=== PATIENT | male | born 1945 | race Caucasian/White ===

== ENCOUNTER 2025-06-04 16:10 | Outpatient (AMB) | payer BC, SELFPAY ==
--- OUTSIDE RECORDS SUMMARY | 2025-06-02 23:59 | XMS_ITS | Continuity of Care Document ---
Author Organization [facility] Primary [address] [place] Address [address] [place] [address]- Care Team Providers Care E Commerce Director Name Role Phone Enrique SEGUNDO (Psychiatric), Jade Landers Primary Care Ph ysician Encounter [facility] Date(s): 05/03/25 - 06/02/25 [facility] [address], [place] [address] Encounter Type: Triage Allergies, Adverse Reactions, Alerts Substance Criticality Severity Reaction Reaction Severity Status Adhesive Bandage Unable to assess criticality Unknown Active Immunizations Given and Recorded Vaccine Date Status Refusal Reason RSV vaccine preF3, recombinant 02/19/25 Recorded influenza virus vaccine, inactivated 10/27/24 Adiel rded influenza virus vaccine, inactivated 09/01/23 Adiel rded influenza virus vaccine, inactivated 09/08/22 Adiel rded influenza virus vaccine, inactivated 10/06/21 Adiel rded influenza virus vaccine, inactivated 09/04/20 Adiel rded influenza virus vaccine, inactivated 08/03/18 Adiel rded influenza virus vaccine, inactivated 09/26/17 Adiel rded influenza virus vaccine, inactivated 11/02/16 Adiel rded SARS-CoV-2(COVID-19)mRNA-LNP vac([id number]) 08/21/24 Recorded SARS-CoV-2(COVID-19)mRNA-LNP vac([id number]) 02/10/24 Recorded SARS-CoV-2(COVID-19)mRNA-LNP vac([id number]) 08/23/23 Recorded [id number] bivalent booster vax 03/12/23 Recorded [id number] bivalent booster vax 08/11/22 Recorded SARS-CoV-2 (COVID-19) mRNA-1273 vaccine 02/24/22 R ecorded SARS-CoV-2 (COVID-19) mRNA-1273 vaccine 09/17/21 R ecorded SARS-CoV-2 (COVID-19) mRNA-1273 vaccine 02/20/21 R ecorded SARS-CoV-2 (COVID-19) mRNA-1273 vaccine 01/23/21 R ecorded tetanus/diphtheria/pertussis, acel(Tdap) 02/01/18 Recorded Medications doxazosin 2 mg oral tablet 1, tablet, By Mouth, Daily, # 90 tablet, Refills 1, Maintenance, 02/15/25 10:51:00 AM EDT, Route to Pharmacy Electronically, [facility], 173, cm, 01/21/25 8:09:00 EST, Height, 64, kg, 09/10/24 11:52:00 EDT, Dry Weight Start Date: 02/15/25 Status: Ordered Quantity: 90.0 Unit: tablet Repeat number: 1 fluticasone 50 mcg/inh nasal spray 2 sprays = 100 mcg, Nares, Both, Daily in AM, # 16 Gm, 0 Refills, Maintenance, 11/30/24 2:20:00 PM EST, [place], [facility]/pharmacy #[id number], Partial fill upon patient request if the prescription is for a schedule II opioid drug., 2 sprays Nares, Both Daily in AM, 173, cm, 11/30/24 14:07:00 EST, Height, 64, kg, 09/10/24 11:52:00 EDT, Dry Weight Start Date: 11/30/24 Status: Ordered Quantity: 16.0 Unit: g Repeat number: 1 lisinopril 2.5 mg oral tablet 2.5 mg, 1, tablet, By Mouth, Daily, # 90 tablet, Refills 1, Tot. Refills 1, Maintenance, 05/08/25 7:38:00 PM EDT, Route to Pharmacy Electronically, [facility], 173, cm, 03/11/2515:28:00 EDT, Height, 64, kg, 09/10/24 11:52:00 EDT, Dry Weight Start Date: 05/08/25 Status: Ordered Quantity: 90.0 Unit: tablet Repeat number: 2 Neurontin 600 mg oral tablet 1 tablet = 600 mg, By Mouth, 2 times a day, # 270 tablet, 0 Refills, Maintenance, 09/17/21 4:26:00 PM EDT, Tablet, Partial fill upon patient request if the prescription is for a schedule II opioid drug. Start Date: 09/17/21 Status: Ordered Quantity: 270.0 Unit: tablet Repeat number: 1 PriLOSEC OTC 20 mg oral delayed release tablet 1 tablet = 20 mg, By Mouth, Daily, PRN Dyspepsia, 0 Refills, Maintenance, 09/17/21 4:28:00 PM EDT, Partial fill upon patient request if the prescription is for a schedule II opioid drug. Start Date: 09/17/21 Status: Ordered Repeat number: 1 Vitamin D3 5000 intl units oral capsule 1 capsule = 125 mcg, By Mouth, Daily, # 90 capsule, 1 Refills, Maintenance, 03/11/25 3:45:00 PM EDT,[facility], Partial fill upon patient request if the prescription is for a schedule II opioid drug., 173, cm, 03/11/25 15:28:00 EDT, Height, 64, kg, 09/10/24 11:52:00 EDT, Dry Weight Start Date: 03/11/25 Stop Date: 09/07/25 Status: Ordered Quantity: 90.0 Unit: capsule Repeat number: 2 Problem List Condition Confirmation Course Effective Dates Status Health St atus Informant 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 H/O renal calculi Confirmed Active Hypertension Confirmed Active Neuropathy of foot Confirmed Active Vitamin D deficiency Confirmed Active Social History Social History Type Response Smoking Status Never (less than 100 in lifetime) entered on: 09/17/21 Sex Sex Representation Male (finding) Patient Care team information Care Team Personnel Name: Enrique SEGUNDO ([facility] [place]), Jade Landers Position: [facility] Physician - Primary Care Member Role: PCP Address: [address] [place] [id number] Telecom: Care Team Related Persons Name: GM HARRIS Name: ISAMAR MASON Insurance Providers Guarantor name: YANIRA Health Plan Information #: 1 Payer: [employer] [place] [employer] Payer Identifier: YANIRA Member Number: [id number] Group Number: [id number] Subscriber Identifier: [id number] Relationship to Subscriber: self Coverage Type: NA Coverage Verification Date: Telecom: Address:
--- NOTE | 2025-06-04 16:12 | MHC.OFFVIS ---
Vital Signs 06/04/25 16:12 Height 5 ft 8 in Intake Visit Reasons: 1 YR Allergies No Known Allergies Allergy (Verified 06/03/25 08:23) Medication List - Last Reconciled 06/04/25 by Nancy Jay CNP cholecalciferol (vitamin D3) 25 mcg PO DAILY doxazosin 2 mg PO DAILY gabapentin 600 mg PO BID lisinopril 5 mg PO DAILY omeprazole magnesium (Prilosec OTC) 20 mg PO DAILY HPI Comments Details: He was doing okay. Neuropathic pain controlled with Gabapentin 600mg twice a day. Gets some aching type pain in feet with increased activity. No falls. Cross country skiing in the winter. Sleep was okay. Noticed it takes him longer to recall information, like names of restaurants, but will eventually think of it. He developed numbness in the soles of his feet around 2010. In January of 2018 started to feel an uncomfortable sensation like his socks were wet. In May 2018 he started to get burning tingling and pain from the ankles down. Juvenal ecreeping up of numbness. There is no family history of neuropathy. His mother had trigeminal neuralgia. There is no history of toxic exposure. [facility] Medical History (Updated 06/04/25 @ 16:21 by Nancy Jay CNP) Peripheral neuropathy Review of Systems Const Denies chills, Denies daytime sleepiness, Denies difficulty sleeping, Denies fatigue, Denies fever(s), Denies frequent falls, Denies headache(s), Denies increased appetite, Denies poor appetite, Denies snoring, Denies weakness, Denies weight gain and Denies weight loss Eyes Denies loss of vision ENT Denies vertigo, Denies dizziness, Denies headache(s) and Denies neck pain Card Denies chest pain at rest, Denies chest pain with activity, Denies syncope, Denies leg edema, Denies palpitations, Denies dyspnea and Denies dyspnea on exertion Resp Denies cough, Denies dyspnea, Denies dyspnea on exertion and Denies snoring GI Denies abdominal pain, Denies constipation, Denies heartburn, Denies diarrhea and Denies nausea Denies urinary frequency, Denies urinary incontinence and Denies urinary urgency Musc Denies abnormal gait, Denies back pain, Denies myalgias, Denies arthralgias, Denies neck pain, Reports numbness and Denies tingling Neuro Denies abnormal gait, Denies vertigo, Denies dizziness, Denies syncope, Denies frequent falls, Denies headache(s), Denies lack of coordination, Denies loss of vision, Denies memory loss, Reports numbness, Denies Other visual disturbances, Denies restless legs, Denies seizure-like activity, Denies tingling, Reports paresthesias, Reports tremor(s) and Denies weakness Psych Denies anxiety, Denies depression, Denies auditory hallucinations, Denies memory loss and Denies visual hallucinations Endo Denies fatigue and Denies palpitations Physical Exam Const Other: General Appearance:? normal, in no acute distress. Heart:? S1, S2 normal, no murmurs. Lungs:? clear anteriorly and posteriorly. Musculoskeletal:? normal. Extremities:? no edema. Psych:? alert, oriented, cognitive function intact, cooperative with exam. Neuro Other: Abnormal Neurological Findings:?Minimal blunting of pinprick sensation in tip of toes. Vibration is intact.? Preserved knee jerks 3+ ankle jerks are 0-1+. Vibration and position senses intact . atrophy of the EDB muscle bilaterally with slight weakness in toe extensors Mental Status: alert and oriented X 3. Normal attention, orientation, memory, and affect. Cranial Nerves: Pupils are equal, round, and reactive to light. External ocular muscles are intact. Visual reis are full, no ptosis. Face is symmetrical, no facial weakness or droop. Facial sensations are normal. Tongue protrudes in midline. Palate elevates symmetrically. Shoulder shrugging is normal Motor Examination: As above, otherwise normal muscle tone, bulk and strength. No atrophy or fasciculations. No drift of the extended upper extremities. DTR 2+. Plantars are flexor. Straight Leg Raisin degrees. Sensory Exam: As above, otherwise normal light touch, temperature, pinprick, vibration, and joint-position sensations. Rhomberg sign is absent. Coordination: No ataxia. No titubation. Rticyd-xk-vsmb, suqo-pqwj-xgvv test, and rapid alternating movements were normal. Gait Exam: Within normal limits. Cerebellar Signs: Ncebpc-xf-oerh and bhwj-kv-xvan is normal. No dysdiadochokinesia. Extrapyramidal System: No tremor, rigidity with normal facial expressions. No bradykinesia. No bradyphrenia. Normal arm swing and posture. No propulsion or retropulsion. Speech: Normal. No dysphasia or dysarthria. Assessment & Plan Assessment & Plan (1) Peripheral neuropathy: Code(s): G62.9 - Polyneuropathy, unspecified Category: Medical Qualifiers: Peripheral neuropathy type: polyneuropathy, unspecified Qualified Code(s): G62.9 - Polyneuropathy, unspecified Plan: Continue gabapentin 600mg 1 tablet twice a day. Coding Level of Care Code Est Pt Level 3 (78536) Diagnoses Peripheral polyneuropathy G62.9 Peripheral neuropathy type: polyneuropathy, unspecified
--- OUTSIDE RECORDS SUMMARY | 2025-06-04 16:44 | XMS_ITS | Patient Health Record ---
Author Organization [facility] Address [address] [place] [address] Care Team Providers Care Estate Tax Examiner Name Role Phone Enrique SEGUNDO, Jade Primary Care Provider Unavaila Vaishali Vargas Unavailable [phone] Allergies Allergen (clinical drug ingredient) Drug/Non Drug Allergy documented on EMR Reaction Allergy Type Onset Date Status Adhesive Tape RASH Drug Allergy Act allyson Reason For Referral No Information Medications Medication SIG (Take, Route, Frequency, Duration) Notes Start Date End Date Status Diltiazem CD 180 MG 1 capsule Orally Onc e a day Not-Taking Vitamin B50 Complex Active Gabapentin 300 MG Orally Three times a day Active Doxazosin Mesylate 2 MG 1 tablet Orally Once a day Active Lisinopril 5 MG 1 tablet Orally Once a day Active Plastazote innersoles dx neuritis . . .; Duration: . 06/30/2018 Not-Takin g Tamsulosin HCl Not-T aking B50 Complex TR Not-T aking Immunizations Vaccine Route Administration Date Status Comme nts Influenza Unknown 09/12/2024 Administered Social History Tobacco Use: Social History Observation Description Date Details (start date - stop date) Never Smoker NA - NA Tobacco use other than smoking: Question Answer Notes Are you an other tobacco user? No Tobacco Control (Standard) Question Answer Notes Tobacco use: Nonsmoker Additional Findings: Tobacco non-user Current no nsmoker AUDIT-C (Standard) Question Answer Notes Did you have a drink containing alcohol in the p ast year? 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 Vital Signs Blood pressure diastolic 70 mm Hg 05/07/2025 Height 5ft 8in in 05/07/2025 Blood pressure systolic 130 mm Hg 05/07/2025 Weight 140 lbs 05/07/2025 BMI 21.28 kg/m2 05/07/2025 Encounters Encounter Location Date Provider Diagnosis [facility] [address] [place] [address] 05/07/2025 Vaishali Levine Neuralgia and neuritis, unspecified M79.2 and Idiopathic neuropathy G60.9 Assessments Encounter Date Diagnosis (ICD Code) Assessment Notes Treatment Notes Treatment Clinical Notes Section Notes 05/07/2025 Neuralgia and neuritis, unspecified (ICD-10 - M79.2) 05/07/2025 Idiopathic neuropathy (ICD-10 - G60.9) Plan Of Treatment Next Appt Details Provider Name:Vaishali Levine , 05/06/2026 01:00:00 PM, [address], [place], [address], Insurance Providers Payer Name Payer Address Payer Phone Subscriber Number Group Number Insured Name Patient Relationship to Insured Coverage Start Date Coverage End Date [facility] [address] [place] [address] [id number]en[address]ro Self - patient is the insured Medical (General) History Medical History History ICD Code Cataracts High blood pressure Measles Chicken pox Numbness chronic sinusitis Hammer toe of left foot M20.42 Hammer toe of right foot M20.41 Surgical History Surgery Date(Month/Year) knee surgery, left 1977 knee surgery, right 1995 Carpel Tunnel Revision Thumb Surgery Hospitalization History Reason Date(Month/Year) respiratory syncytial virus (RSV) bronch iolitis
== END 2025-06-04 16:28 | disposition home or self-care (01) ==
LOC: HO.HSM 16:11
PROVIDERS: PCP Internal Medicine; Referring Provider Internal Medicine; Visit Provider Registered Nurse
DX: G62.9 Polyneuropathy, unspecified (principal)
CPT/HCPCS: 99213